=== PATIENT | female | born 1995 | race Caucasian/White ===

== ENCOUNTER → 2023-10-30 | Outpatient (CLI) | payer BC ==
[~2023-10-30] MED LIST: IOHEXOL-350 75 ML VIAL IV ONE
== END | disposition home or self-care (01) ==
LOC: RAH 11:04
PROVIDERS: ATTEND Nurse Practitioner Family
DX: R22.42 Localized swelling, mass and lump, left lower limb (principal); M25.78 Osteophyte, vertebrae; I70.90 Unspecified atherosclerosis
CPT/HCPCS: 72194; Q9967